=== PATIENT | female | born 1985 | race Caucasian/White ===

== ENCOUNTER → 2020-04-09 | Outpatient (CLI) | payer BC ==
[~2020-04-09] MED LIST: CELEXA 20MG20 MG/TA1 PO; MELATIN3 MG; NATURAL IRON65 MG
== END ==
LOC: LAB 14:19
DX: R19.7 Diarrhea, unspecified (principal)

== ENCOUNTER → 2020-06-25 | Outpatient (CLI) | payer BC ==
[2020-06-25 12:26] LABS: BASO # 0.02 (0.02-0.10); EOS # 0.12 (0.04-0.40); EOS % 1.8 % (1.0-5.0); HEMATOCRIT 42.4 % (37.0-47.0); HEMOGLOBIN 14.2 g/dL (12.5-16.0); LYMPH# 2.04 (1.50-4.00); MEAN CELL VOLUME 94 fl (78-100); MEAN CORPUSCULAR HEMOGLOBIN 32 pg (27-31); MEAN CORPUSCULAR HGB CONC 34 g/dL (33-37); MEAN PLATELET VOLUME 10.2 fl (7.4-10.4); NEU # 3.93 (1.40-6.50); PLATELET COUNT 188 K/mm3 (130-400); RED BLOOD COUNT 4.49 M/mm3 (4.10-5.30); RED CELL DISTRIBUTION WIDTH 11.7 % (11.5-14.5); WHITE BLOOD COUNT 6.6 K/mm3 (4.8-10.8)
[2020-06-25 12:32] LABS: URINE APPEARANCE CLEAR; URINE BILIRUBIN NEGATIVE (NEGATIVE); URINE BLOOD NEGATIVE (NEGATIVE); URINE COLOR YELLOW; URINE GLUCOSE NEGATIVE (NEGATIVE); URINE KETONE NEGATIVE (NEGATIVE); URINE LEUKOCYTE ESTERASE 1+ (NEGATIVE); URINE NITRATE NEGATIVE (NEGATIVE); URINE PROTEIN(semi-quant) TRACE mg/dL (NEGATIVE); URINE UROBILINOGEN NORMAL (NORMAL)
[2020-06-25 12:37] LABS: ALBUMIN 4.5 g/dL (3.5-5.0); POTASSIUM 3.9 mmol/L (3.5-5.1)
[2020-06-25 12:38] LABS: CALCIUM 9.1 mg/dL (8.3-10.5)
[2020-06-25 12:41] LABS: TOTAL BILIRUBIN 0.6 mg/dL (0.2-1.2)
== END ==
LOC: LAB 12:14
PROVIDERS: Family Medicine
DX: R10.9 Unspecified abdominal pain (principal); R73.9 Hyperglycemia, unspecified; R74.8 Abnormal levels of other serum enzymes; R31.9 Hematuria, unspecified

== ENCOUNTER 2020-08-18 07:20 | Emergency (ER) | payer BC ==
[2020-08-18 07:29] VITALS: BP 111/77
[2020-08-18] MEDS ORDERED: NATURAL IRON65 MG (07:32)
[2020-08-18] MEDS ORDERED: MELATIN3 MG (07:32)
[2020-08-18] MEDS ORDERED: CELEXA 20MG20 MG/TA1 PO (07:32)
[2020-08-18 07:49] LABS: BASO # 0.02 (0.02-0.10); EOS # 0.15 (0.04-0.40); EOS % 2.7 % (1.0-5.0); HEMOGLOBIN 12.9 g/dL (12.5-16.0); LYMPH# 1.27 (1.50-4.00); MEAN CELL VOLUME 94 fl (78-100); MEAN CORPUSCULAR HEMOGLOBIN 32 pg (27-31); MEAN CORPUSCULAR HGB CONC 34 g/dL (33-37); MEAN PLATELET VOLUME 9.8 fl (7.4-10.4); MONO # 0.45 (0.20-0.80); NEU # 3.57 (1.40-6.50); PLATELET COUNT 158 K/mm3 (130-400); RED BLOOD COUNT 4.03 M/mm3 (4.10-5.30); RED CELL DISTRIBUTION WIDTH 11.7 % (11.5-14.5); WHITE BLOOD COUNT 5.5 K/mm3 (4.8-10.8)
[2020-08-18 07:57] LABS: URINE APPEARANCE CLOUDY; URINE COLOR YELLOW
[2020-08-18 07:58] LABS: URINE BILIRUBIN NEGATIVE (NEGATIVE); URINE BLOOD 250 ery/uL (NEGATIVE); URINE GLUCOSE NEGATIVE (NEGATIVE); URINE KETONE NEGATIVE (NEGATIVE); URINE LEUKOCYTE ESTERASE NEGATIVE (NEGATIVE); URINE MUCUS PRESENT (NOT PRESENT); URINE NITRATE NEGATIVE (NEGATIVE); URINE PROTEIN(semi-quant) 1+ mg/dL (NEGATIVE); URINE UROBILINOGEN NORMAL (NORMAL); URINE WBC 0-1 /hpf (0-3)
[2020-08-18 08:07] LABS: ALBUMIN 4.1 g/dL (3.5-5.0)
[2020-08-18 08:09] LABS: CALCIUM 8.8 mg/dL (8.3-10.5)
[2020-08-18 08:10] LABS: TOTAL PROTEIN 6.5 g/dL (6.4-8.3)
[2020-08-18 08:12] LABS: TOTAL BILIRUBIN 0.8 mg/dL (0.2-1.2)
== END 2020-08-18 08:02 | disposition home or self-care (01) ==
LOC: ED 07:20
PROVIDERS: Family Medicine
DX: R31.9 Hematuria, unspecified (principal); R10.32 Left lower quadrant pain

== ENCOUNTER → 2020-11-27 | Outpatient (CLI) | payer BC | LOC: RAD 10:17 | DX: M25.551 Pain in right hip (principal) ==

== ENCOUNTER 2021-02-10 11:30 | Emergency (ER) | payer BC ==
[2021-02-10] MEDS ORDERED: MELOXICAM15 MG PO (12:17)
[2021-02-10 12:19] LABS: URINE APPEARANCE CLEAR; URINE BILIRUBIN NEGATIVE (NEGATIVE); URINE BLOOD 250 ery/uL (NEGATIVE); URINE COLOR YELLOW; URINE GLUCOSE NEGATIVE (NEGATIVE); URINE KETONE NEGATIVE (NEGATIVE); URINE LEUKOCYTE ESTERASE TRACE (NEGATIVE); URINE NITRATE NEGATIVE (NEGATIVE); URINE PROTEIN(semi-quant) 1+ (NEGATIVE); URINE UROBILINOGEN NORMAL (NORMAL)
[2021-02-10] MEDS ORDERED: KETOROLAC10 MG PO (12:44)
[2021-02-10] MEDS ORDERED: ZOFRAN ODT4 MG PO (12:44)
[2021-02-10 13:20] VITALS: BP 105/59
== END 2021-02-10 13:18 | disposition home or self-care (01) ==
LOC: ED 11:30
PROVIDERS: Family Medicine
DX: N20.0 Calculus of kidney (principal); N39.0 Urinary tract infection, site not specified
CPT/HCPCS: J0696; J1885; J2270

== ENCOUNTER → 2024-01-03 | Outpatient (CLI) | payer OTHER ==
[~2024-01-03] MED LIST changes: +KETOROLAC10 MG PO; +MELOXICAM15 MG PO; +ZOFRAN ODT4 MG PO
== END ==
LOC: MAMMO 10:52
DX: Z12.31 Encounter for screening mammogram for malignant neoplasm of breast (principal)

== ENCOUNTER → 2024-01-11 | Outpatient (CLI) | payer OTHER | LOC: MAMMO 08:30 | DX: R92.8 Other abnormal and inconclusive findings on diagnostic imaging of breast (principal) ==